=== PATIENT | female | born 1995 | race Hispanic/Latino ===

== ENCOUNTER → 2018-05-09 | Emergency (ER) | payer OTHER | LOC: EDH 05:43 | DX: Z02.83 Encounter for blood-alcohol and blood-drug test (principal) ==

== ENCOUNTER 2020-12-10 05:06 | Emergency (ER) | payer SELFPAY ==
[~2020-12-10] VITALS: Ht 149.9 cm; Wt 47.6 kg
[2020-12-10 05:10] VITALS: BP 118/72
== END 2020-12-10 05:30 ==
LOC: EDH 05:06
DX: Z02.83 Encounter for blood-alcohol and blood-drug test (principal)
CPT/HCPCS: 36415; 99281